=== PATIENT | male | born 1970 | race Caucasian/White ===

== ENCOUNTER 2022-12-22 16:17 | Emergency (ER) | payer OTHER ==
[~2022-12-22] VITALS: Ht 177.8 cm; Wt 73.0 kg
[2022-12-22 16:21] VITALS: BP 139/95
== END 2022-12-22 19:17 | disposition home or self-care (01) ==
LOC: ER 16:17
DX: H43.392 Other vitreous opacities, left eye (principal)
CPT/HCPCS: 99284